=== PATIENT | male | born 1980 | race Caucasian/White ===

== ENCOUNTER 2017-11-10 14:53 | Emergency (ER) | payer OTHER, MEDICAID ==
[2017-11-10] MEDS: NS 1,000 ML IV (16:31)
[2017-11-10] MEDS: ONDANSETRON 4MG/2ML VIAL (J2405) IV (16:31)
[2017-11-10 16:37] LABS: BASO % 0.4 % (0.0-1.0); EOS % 0.1 % (0.0-3.0); HEMATOCRIT 53.5 % (42.0-52.0); HEMOGLOBIN 18.9 g/dl (14.0-18.0); IMMATURE GRANULOCYTE % 0.4 % (0-0); LYMPH # 1.6 10^3/uL (1.5-4.5); LYMPH % 14.8 % (24.0-44.0); MEAN CORPUSCULAR HEMOGLOBIN 28.8 pg (27.0-33.0); MEAN CORPUSCULAR HGB CONC 35.3 g/dl (32.0-36.5); MEAN CORPUSCULAR VOLUME 81.4 fl (80.0-96.0); MONO # 0.4 10^3/uL (0.0-0.8); MONO % 3.8 % (0.0-5.0); NEUTROPHILS # 8.6 10^3/uL (1.8-7.7); NEUTROPHILS % 80.5 % (36.0-66.0); PLATELET COUNT, AUTOMATED 245 10^3/uL (150-450); RED BLOOD COUNT 6.57 10^6/uL (4.30-6.10); RED CELL DISTRIBUTION WIDTH 11.9 % (11.5-14.5); WHITE BLOOD COUNT 10.7 10^3/uL (4.0-10.0)
[2017-11-10 16:48] LABS: INR 0.96; PROTHROMBIN TIME 12.9 SECONDS (12.4-14.5)
[2017-11-10 16:49] LABS: PARTIAL THROMBOPLASTIN TIME 30.5 SECONDS (26.8-37.9)
[2017-11-10 17:05] LABS: ALBUMIN 4.7 GM/DL (3.2-5.2); ALBUMIN/GLOBULIN RATIO 1.52 (1.00-1.93); ALKALINE PHOSPHATASE 71 U/L (45-117); ALT/SGPT 32 U/L (12-78); ANION GAP 8 MEQ/L (8-16); AST/SGOT 22 U/L (7-37); BILIRUBIN,DIRECT 0.2 MG/DL (0.0-0.2); BLOOD UREA NITROGEN 18 MG/DL (7-18); CALCIUM LEVEL 9.3 MG/DL (8.5-10.1); CARBON DIOXIDE LEVEL 25 MEQ/L (21-32); CHLORIDE LEVEL 108 MEQ/L (98-107); CREATININE FOR GFR 0.99 MG/DL (0.70-1.30); GLOMERULAR FILTRATION RATE > 60.0 (>60); GLUCOSE, FASTING 109 MG/DL (70-105); LIPASE 90 U/L (73-393); POTASSIUM SERUM 4.3 MEQ/L (3.5-5.1); SODIUM LEVEL 141 MEQ/L (136-145); TOTAL PROTEIN 7.8 GM/DL (6.4-8.2)
[2017-11-10] MEDS: PROMETHAZINE INJ 25 MG/ML VIAL (J2550) IV (17:33)
[2017-11-10] MEDS: ALPRAZolam 0.25 MG TAB PO (18:17)
== END 2017-11-10 18:46 | disposition home or self-care (01) ==
LOC: M ED 14:53
DX: R11.2 Nausea with vomiting, unspecified (principal); F41.9 Anxiety disorder, unspecified; F17.210 Nicotine dependence, cigarettes, uncomplicated; Z79.899 Other long term (current) drug therapy; Z98.890 Other specified postprocedural states
CPT/HCPCS: J2405

== ENCOUNTER 2018-08-24 01:24 | Emergency (ER) | payer OTHER ==
[2018-08-24 02:18] LABS: BASO # 0.1 10^3/uL (0.0-0.2); BASO % 0.7 % (0.0-1.0); EOS # 0.1 10^3/uL (0.0-0.50); HEMATOCRIT 50.8 % (42.0-52.0); HEMOGLOBIN 17.6 g/dl (13.5-17.5); IMMATURE GRANULOCYTE % 0.3 % (0-3.0); MEAN CORPUSCULAR HGB CONC 34.6 g/dl (32.0-36.5); MEAN CORPUSCULAR VOLUME 83.8 fl (80.0-96.0); MONO # 0.5 10^3/uL (0.0-0.8); MONO % 5.8 % (0.0-5.0); NEUTROPHILS # 5.5 10^3/uL (1.8-7.7); NEUTROPHILS % 59.2 % (36.0-66.0); PLATELET COUNT, AUTOMATED 289 10^3/uL (150-450); RED BLOOD COUNT 6.06 10^6/uL (4.30-6.10); RED CELL DISTRIBUTION WIDTH 11.9 % (11.5-14.5); WHITE BLOOD COUNT 9.2 10^3/uL (4.0-10.0)
[2018-08-24 02:25] LABS: ANION GAP 10 MEQ/L (8-16); BLOOD UREA NITROGEN 13 MG/DL (7-18); CALCIUM LEVEL 8.7 MG/DL (8.5-10.1); CARBON DIOXIDE LEVEL 27 MEQ/L (21-32); CHLORIDE LEVEL 103 MEQ/L (98-107); CREATININE FOR GFR 1.05 MG/DL (0.70-1.30); GLOMERULAR FILTRATION RATE > 60.0 (>60); GLUCOSE, FASTING 101 MG/DL (70-100); POTASSIUM SERUM 4.2 MEQ/L (3.5-5.1); SODIUM LEVEL 140 MEQ/L (136-145)
[2018-08-24] MEDS: diphenhydrAMINE INJ 50MG/ML VIAL (J1200) IV (02:40)
[2018-08-24] MEDS: KETOROLAC 30 MG/ML VIAL (J1885) IV (02:40)
[2018-08-24 02:41] LABS: ERYTHROCYTE SEDIMENTATION RATE 1 mm/hr (0-15)
[2018-08-24] MEDS: HALOPERIDOL 5 MG/ML VIAL (J1630) IV (02:41)
[2018-08-24 03:16] LABS: CARBOXYHEMOGLOBIN 9.4 % (0.0-1.5)
== END 2018-08-24 04:31 | disposition home or self-care (01) ==
LOC: M ED 01:24
DX: T58.91XA Toxic effect of carbon monoxide from unspecified source, accidental (unintentional), initial encounter (principal); R11.0 Nausea; H53.149 Visual discomfort, unspecified; R41.0 Disorientation, unspecified; X58.XXXA Exposure to other specified factors, initial encounter; Y92.89 Other specified places as the place of occurrence of the external cause; M54.9 Dorsalgia, unspecified; F19.11 Other psychoactive substance abuse, in remission; Z87.81 Personal history of (healed) traumatic fracture; Z87.828 Personal history of other (healed) physical injury and trauma; F17.200 Nicotine dependence, unspecified, uncomplicated; Z79.899 Other long term (current) drug therapy
CPT/HCPCS: J1200

== ENCOUNTER 2018-12-30 16:05 | Emergency (ER) | payer OTHER ==
[~2018-12-30] VITALS: Ht 175.3 cm; Wt 79.5 kg
[~2018-12-30 16:05] MED LIST: /DULO30CA PO; ALPR0.5T3 PO; NEUR100C OR; NUCYNTA PO; OXYC10TA12 OR; SUBO8MIS PO; ZOFR4TAB14 PO
[2018-12-30] MEDS ORDERED: SUBL300I (16:15)
--- NOTE | 2018-12-30 17:05 | REP ---
CT of the cervical spine: Axial images are acquired helical scanning and a reformatted sagittal and coronal projections. There are no comparisons. The skull base, C1 and C2 are unremarkable. Vertebral body heights, interspacing alignment are normal. The facets are normally aligned. The prevertebral soft tissues are normal. There are no posterior element fractures. Impression: There is no fracture or listhesis. Electronically Signed by Jewel Ball MD 12/30/2018 04:56 P
--- NOTE | 2018-12-30 17:12 | REP ---
CT of the thoracic spine: Axial images are acquired helical scanning and a reformatted sagittal coronal projections. Comparison is 01/03/2012. There is grade 1 compression deformity of the T5 superior endplate, unchanged. There are no retropulsed fragments. Vertebral body heights, interspacing alignment are otherwise unremarkable and unchanged. There are no new compression deformities. There is no listhesis. No posterior element fractures are identified. No paravertebral hematoma. Impression: There are no acute thoracic spine fractures. There is an old grade 1 compression fracture of the T5 superior endplate without retropulsed fragments, unchanged. Electronically Signed by Jewel Ball MD 12/30/2018 05:03 P
[2018-12-30 17:20] VITALS: BP 139/80
== END 2018-12-30 17:31 | disposition home or self-care (01) ==
LOC: M ED 16:05
DX: S16.1XXA Strain of muscle, fascia and tendon at neck level, initial encounter (principal); V49.49XA Driver injured in collision with other motor vehicles in traffic accident, initial encounter; Y92.410 Unspecified street and highway as the place of occurrence of the external cause; F17.210 Nicotine dependence, cigarettes, uncomplicated

== ENCOUNTER → 2020-06-01 | Emergency (ER) | payer OTHER ==
[~2020-06-01] MED LIST changes: -/DULO30CA PO; +CYMB1CAP5 PO; +SUBL300I
== END | disposition left against medical advice (07) ==
LOC: M ED 03:36
DX: Z53.21 Procedure and treatment not carried out due to patient leaving prior to being seen by health care provider (principal)

== ENCOUNTER 2023-04-30 18:22 | Emergency (ER) | payer MEDICAID, OTHER ==
[~2023-04-30] VITALS: Ht 172.7 cm; Wt 82.6 kg
[2023-04-30] MEDS ORDERED: ADDE30CA3 PO (18:33)
[2023-04-30] MEDS ORDERED: CLON0.5T2 PO (18:33)
[2023-04-30] MEDS ORDERED: AMBI10TA PO (18:33)
[2023-04-30 19:25] LABS: HEMATOCRIT 45.8 % (42.0-52.0); HEMOGLOBIN 16.1 g/dl (13.5-17.5); MEAN CORPUSCULAR HEMOGLOBIN 30.8 pg (27.0-33.0); MEAN CORPUSCULAR HGB CONC 35.2 g/dl (32.0-36.5); MEAN CORPUSCULAR VOLUME 87.7 fl (80.0-96.0); PLATELET COUNT, AUTOMATED 191 10^3/uL (150-450); RED BLOOD COUNT 5.22 10^6/uL (4.30-6.10)
[2023-04-30 19:38] LABS: AMPHETAMINES LEVEL URINE NEGATIVE (NEGATIVE); BARBITURATES URINE NEGATIVE (NEGATIVE); BENZODIAZEPINES URINE NEGATIVE (NEGATIVE); CANNABINOIDS URINE NEGATIVE (NEGATIVE); METHADONE URINE NEGATIVE (NEGATIVE); OPIATES URINE NEGATIVE (NEGATIVE); PHENCYCLIDINE URINE NEGATIVE (NEGATIVE)
[2023-04-30 19:45] LABS: COCAINE METABOLITE URINE POSITIVE (NEGATIVE)
[2023-04-30 19:53] LABS: ETHYL ALCOHOL (ETHANOL) < 0.003 % (0.000-0.010)
[2023-04-30 19:55] LABS: ACETAMINOPHEN LEVEL < 2.0 UG/ML (10.0-20.0); ALKALINE PHOSPHATASE 86 U/L (46-116); ALT/SGPT 31 U/L (7.0-40); AST/SGOT 12 U/L (<34); BILIRUBIN,DIRECT 0.1 MG/DL (<0.4); BILIRUBIN,TOTAL 0.4 MG/DL (0.3-1.2); BLOOD UREA NITROGEN 23 MG/DL (9-23); CALCIUM LEVEL 9.7 MG/DL (8.5-10.1); CARBON DIOXIDE LEVEL 29 MMOL/L (20-31); CHLORIDE LEVEL 106 MMOL/L (98-107); CREATININE FOR GFR 1.21 MG/DL (0.70-1.30); GLOMERULAR FILTRATION RATE > 60.0 (>60); GLUCOSE, FASTING 86 MG/DL (60-100); SALICYLATE LEVEL < 3.0 MG/DL (<30); SODIUM LEVEL 141 MMOL/L (136-145); TOTAL PROTEIN 6.5 G/DL (5.7-8.2)
[2023-04-30 19:57] LABS: THYROID STIMULATING HORMONE 1.444 uIU/ML (0.55-4.78)
[2023-04-30] MEDS ORDERED: LORazepam 2 MG TAB PO STA (21:12)
[2023-04-30] MEDS ORDERED: HALOPERIDOL 5MG/ML 1ML VIAL IM STA (21:40)
[2023-04-30] MEDS ORDERED: HOME MED LIST COMPLETE! XX SCH (23:20)
[2023-05-01 11:14] VITALS: BP 118/70; TEMP 98.4; O2SAT 99
== END 2023-05-01 11:17 ==
LOC: M ED 18:22
DX: R45.851 Suicidal ideations (principal); F90.9 Attention-deficit hyperactivity disorder, unspecified type; G47.00 Insomnia, unspecified; F17.200 Nicotine dependence, unspecified, uncomplicated; Z79.899 Other long term (current) drug therapy
CPT/HCPCS: 80048; 80076; 80143; 80307; 82077; 84443; 85027; 87635; 93005; 96372; 99284; J1630

== ENCOUNTER 2023-06-30 07:25 | Emergency (ER) | payer BC, OTHER ==
[~2023-06-30] VITALS: Ht 175.3 cm; Wt 87.6 kg
[~2023-06-30 07:25] MED LIST changes: +ADDE30CA3 PO; +AMBI10TA PO; +CLON0.5T2 PO
[2023-06-30 07:30] VITALS: BP 112/70; O2SAT 96
[2023-06-30] MEDS ORDERED: NIRM1TAB (08:16)
[2023-06-30] MEDS ORDERED: ONDANSETRON 4MG ORAL DISINTEGRATING TAB PO ONE (08:20)
[2023-06-30] MEDS ORDERED: ACETAMINOPHEN TAB 650MG DOSE (2X325MG) PO ONE (08:20)
[2023-06-30 09:31] VITALS: TEMP 99.5
== END 2023-06-30 09:34 | disposition home or self-care (01) ==
LOC: M ED 07:25
DX: U07.1 COVID-19 (principal); Z79.899 Other long term (current) drug therapy

== ENCOUNTER 2024-10-05 19:33 | Emergency (ER) | payer BC, OTHER ==
[~2024-10-05] VITALS: Ht 170.2 cm; Wt 78.8 kg
[~2024-10-05 19:33] MED LIST changes: +NIRM1TAB
[2024-10-05 19:35] VITALS: BP 110/69; TEMP 97.1; O2SAT 98
[2024-10-05] MEDS ORDERED: METH-1164 PO (21:26)
== END 2024-10-05 21:49 | disposition home or self-care (01) ==
LOC: M ED 19:33
DX: S29.012A Strain of muscle and tendon of back wall of thorax, initial encounter (principal); Y92.9 Unspecified place or not applicable; Y93.9 Activity, unspecified; Y99.9 Unspecified external cause status; Z79.899 Other long term (current) drug therapy